=== PATIENT | female | born 1965 | race Caucasian/White ===

== ENCOUNTER 2023-05-13 10:30 | Outpatient (CLI) | payer OTHER, SELFPAY | END 2023-05-13 10:31 | disposition home or self-care (01) | PROVIDERS: Visit Provider Emergency Medicine | DX: S49.91XA Unspecified injury of right shoulder and upper arm, initial encounter (principal); V64.5XXA Driver of heavy transport vehicle injured in collision with heavy transport vehicle or bus in traffic accident, initial encounter; Y92.411 Interstate highway as the place of occurrence of the external cause | CPT/HCPCS: A0425; A0427 ==

== ENCOUNTER 2023-05-13 11:11 | Emergency (ER) | payer OTHER, SELFPAY ==
[2023-05-13] VITALS (23 sets, daily range): BP systolic 117–152; BP diastolic 63–134; PULSE 64–94; RESP 10–24; TEMP 36.3; O2SAT 90–97; BMI 34.0
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
--- NOTE | 2023-05-13 11:33 | ED.NURSE ---
Pt is extremely animated and impulsive during intake and assessments. Pt needs frequent redirection to cooperate with assessments.
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
[2023-05-13] MEDS: KETOROLAC 15 MG/ML inj IVP (12:09)
--- NOTE | 2023-05-13 13:15 | ED.NURSE ---
in room to splint pt's R arm.
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
== END 2023-05-13 14:53 | disposition home or self-care (01) ==
PROVIDERS: Emergency Provider Emergency Medicine
DX: S52.571A Other intraarticular fracture of lower end of right radius, initial encounter for closed fracture (principal); V44.5XXA Car driver injured in collision with heavy transport vehicle or bus in traffic accident, initial encounter; Y92.410 Unspecified street and highway as the place of occurrence of the external cause; S93.401A Sprain of unspecified ligament of right ankle, initial encounter
CPT/HCPCS: 29125; 73110; 73600; 96374; 99283; 99284; 99291; G0390; J1885